=== PATIENT | female | born 1995 | race Caucasian/White ===

== ENCOUNTER 2022-01-01 09:31 | Emergency (ER) | payer OTHER, SELFPAY ==
[2022-01-01] VITALS (7 sets, daily range): BP systolic 108–130; BP diastolic 51–89; PULSE 73–93; RESP 16–18; TEMP 36.7; O2SAT 100; BMI 24.9
--- NOTE | 2022-01-01 09:48 | CRLHL7_ITS ---
For Patients: As a result of the Cures Act, medical imaging exams and procedure reports are released immediately into your electronic medical record. You may view this report before your referring provider. If you have questions, please contact your health care provider. INDICATION: Trauma COMPARISON: None TECHNIQUE: CT examination of the cervical spine is performed without contrast using spiral technique. Thin axial, sagittal and coronal reconstructions were made. Please note that all CT scans at this facility use dose modulation, iterative reconstruction, and/or weight-based dosing when appropriate to reduce radiation dose to as low as reasonably achievable. FINDINGS: : There is straightening which is usually due to muscle spasm, positioning or a immobilization device. There is no fracture, dislocation or destructive process. No significant arthritic changes are identified. No high-grade central stenosis visible by CT. In this patient with a history of pain and numbness status post trauma, MRI should be considered if there is concern for cord injury. IMPRESSION: Straining. No visible acute posttraumatic finding by CT Please note that all CT scans at this facility use dose modulation, iterative reconstruction, and/or weight-based dosing when appropriate to reduce radiation dose to as low as reasonably achievable. Dictated by Titus Rivera MD @ 01/01/2022 10:38:52 AM (Electronically Signed)
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
--- NOTE | 2022-01-01 10:25 | PC.NURSE ---
Patient back from imaging. Stated tingling is better but pain in neck is 6/10. Took tylenol at [address]ified Dr. Osman of increase in pain. Dr. Osman would like to wait for Xray and CT results before giving anything more for pain. Patient updated and agreeable to plan.
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
[2022-01-01] MEDS: IBUPROFEN 200 MG TABLET 600 MG PO (11:11)
== END 2022-01-01 11:19 | disposition home or self-care (01) ==
PROVIDERS: Emergency Provider Family Medicine
DX: S16.1XXA Strain of muscle, fascia and tendon at neck level, initial encounter (principal); V43.62XA Car passenger injured in collision with other type car in traffic accident, initial encounter; M54.6 Pain in thoracic spine
CPT/HCPCS: 72070; 72125; 99284; 99285; A9270

== ENCOUNTER 2024-12-07 08:59 | Outpatient (CLI) | payer OTHER, SELFPAY | END 2024-12-07 09:00 | disposition home or self-care (01) | PROVIDERS: Visit Provider Emergency Medicine | DX: I10 Essential (primary) hypertension (principal); Z11.4 Encounter for screening for human immunodeficiency virus [HIV] | CPT/HCPCS: 80048; 80061; 86703 ==